=== PATIENT | male | born 1995 | race Caucasian/White ===

== ENCOUNTER 2016-09-11 11:33 | Emergency (ER) | payer OTHER ==
[~2016-09-11] VITALS: Ht 185.4 cm; Wt 90.9 kg
[2016-09-11 11:38] VITALS: BP 133/82; PULSE 96; RESP 14; O2SAT 98
--- NOTE | 2016-09-11 11:56 | ED.REPORT ---
HPI-Trauma Minor / Fall Date of Service Sep 11, 2016 ED Provider: History of Present Illness: coming down the scaffolding and the the wood fell and hit right forehead, wood fel about 6 to 10 feet. no loc, vision blurry, no vomiting. nausea. no primary care. works for [employer]. states was hit by a 2 foot long 4 by 6 part of a beam. Has nickel size area of swelling on left forhead with very superficial abrasion. Did not fall to ground, was almost down when the wood hit him. Was carrying on a conservation with a female on the phone the entire time.Still on phone when I went in to inform of results 1315 The story changes, first he states the scaffolding fell. Then when asked the dimension of the scaffold he stated it was the ridge beam and it was 2 feet long. Nursing Notes Chief Complaint: Head, Face, Neck Trauma Nursing Notes Reviewed: Yes Allergies: Coded Allergies: No Known Allergies (Unverified , 09/11/16) General Time Seen by MD: 11:56 Chief Complaint Other (piece of wood hit head) Hx Obtained From: Patient Onset Occurred: Just prior to arrival Symptom Duration: Since onset Context: Occurred at: Workplace Severity: Current: Pain level 2 out of 10 Past Medical History Past Medical History Denies: Asthma, Diabetes mellitus Past Surgical History denies Smoking History Current Every Day Smoker (1/2 pack a day for 6 years) Social History Alcohol Use: 1-3 per week Drug Use: Denies drug use 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, work for loader [employer] 09/11/2016 Ambulatory Status Independent Review of Systems Basic Review of Systems Cardiovascular: No chest pain, No dyspnea on exertion, No orthopnea, No parox noct dyspnea, No palpitations Allergy / Immune: No allergy Psychiatric: Normal thought content Physical Exam Initial Vital Signs Vital Signs (First) Date Time Temp Pulse Resp B/P Pulse Ox O2 Delivery O2 Flow Rate FiO2 09/11/16 11:38 36.2 96 14 133/82 98 Room Air Initial VS: Reviewed, Vital signs normal Head / Eyes: Atraumatic, Normocephalic, PERRL ENT: Mucous membranes moist, Conjunctiva normal, No scleral icterus Respiratory: Breath sounds normal, Clear to auscultation, No respiratory distress Cardiovascular: Regular rate & rhythm, Heart sounds normal, Intact distal pulses Abdomen / GI: Soft, Non-tender, No guarding, No rebound, No distention Back: No CVA tenderness Lymphatic: No lymphadenopathy Extremities: Vascular intact, Neuro intact, No swelling, No tenderness Skin: Warm, Dry, No cyanosis Neurologic: Alert, Oriented, Nonfocal Psychiatric: Mood/affect normal, Behavior normal, Normal thought content General/Constitutional: Awake, Alert, No acute distress Neck: Atraumatic, Supple, No meningismus, Full range of motion, No adenopathy Head / Eyes: Atraumatic, Normocephalic, PERRL, EOMI, No nystagmus, No periorbital redness nickel size area of swelling on left forehead with very superficial abrasion, no active bleeding ENT: Atraumatic, Airway patent, Mucous membranes moist, Pharynx NL Respiratory / Chest: Atraumatic, Breath sounds NL, Breath sounds = bilat, No respiratory distress Cardiovascular: Heart rate NL, Regular rhythm, Heart sounds NL, No gallop Abdomen: Atraumatic, Soft, Non-tender Interpretation & Diagnostics CT Head Interpretation ROCEDURE: CT BRAIN WITHOUT CONTRAST ([id number]) INDICATIONS: 21 year-old male hit in head with piece of wood. TECHNIQUE: Noncontrast 4.5 mm thick angled axial sections acquired from the foramen magnum to the vertex, with coronal reformats. COMPARISON: None. FINDINGS: Image quality: Excellent. CSF spaces: Basal cisterns are patent. No extra-axial fluid collections. Ventricles are normal in size and shape. Brain: No midline shift. No intracranial masses or hemorrhage. Jimenez-white matter interface is normal. Skull and face: Calvarium and visualized facial bones are intact, without suspicious lesions. Sinuses: Visualized sinuses and mastoids are clear. IMPRESSION: No acute intracranial abnormalities. Dictated by: Shaji Steiner M.D. on 09/11/2016 at 11:50 Approved by: Shaji Steiner M.D. on 09/11/2016 at 11:51 Re-Eval/Medical Decision Med Decision/Clinical Course 21 year old male presents to the ER for evualation of head injury which occured just prior to arrival. Head CT is negative. Some relief of nausea. No sign of skull fracture or head bleed. Discharge & Departure Impression: Primary Impression: Abrasion Additional Impression: Contusion Encounter type: initial encounter Contusion area: head Contusion of head detail: other part of head Qualified Code: S00.83XA - Contusion of other part of head, initial encounter Patient Instructions: Abrasion (ED), Contusion in Adults (ED) Additional Instructions: The head CT is normal, no sign of a head bleed or skull fracture. The exam is reassuring. Off work today, return on Wednesday with no ladders or scaffolding for 7 days. Can use zofran 4 mg up to 2 times a day as needed for nausea. Use ibuprofen 800 mg 3 times a day for discomfort. I am sorry this happened. Referrals: Elmer Zacarias MD EDSupervising Provider for APC: Juanjose Jennings DO copies to: Elmer Zacarias MD, Sue ARNP Sep 11, 2016 11:56
--- NOTE | 2016-09-11 12:52 | DRSVH ---
PROCEDURE: CT BRAIN WITHOUT CONTRAST ([id number]) INDICATIONS: 21 year-old male hit in head with piece of wood. TECHNIQUE: Noncontrast 4.5 mm thick angled axial sections acquired from the foramen magnum to the vertex, with c oronal reformats. COMPARISON: None. FINDINGS: Image quality: Excellent. CSF spaces: Basal cisterns are patent. No extra-axial fluid collections. Ventricles are normal in size and shape. Brain: No midline shift. No intracranial masses or hemorrhage. Jimenez-white matter interface is norm al. Skull and face: Calvarium and visualized facial bones are intact, without suspicious lesions. Sinuses: Visualized sinuses and mastoids are clear. IMPRESSION: No acute intracranial abnormalities. Dictated by: Shaji Steiner M.D. on 09/11/2016 at 11:50 Approved by: Shaji Steiner M.D. on 09/11/2016 at 11:51
[2016-09-11 13:41] VITALS: BP 118/77; PULSE 81; RESP 16; O2SAT 100
[2016-09-11 13:44] VITALS: BP 133/82; PULSE 96; RESP 14; O2SAT 98
== END 2016-09-11 13:44 | disposition home or self-care (01) ==
LOC: SED 11:33
DX: S00.81XA Abrasion of other part of head, initial encounter (principal); S00.83XA Contusion of other part of head, initial encounter; W20.8XXA Other cause of strike by thrown, projected or falling object, initial encounter; Y93.89 Activity, other specified; Y92.69 Other specified industrial and construction area as the place of occurrence of the external cause; Y99.0 Civilian activity done for income or pay; F17.200 Nicotine dependence, unspecified, uncomplicated